=== PATIENT | male | born 1965 | race Caucasian/White ===

== ENCOUNTER 2017-02-04 15:13 | Outpatient (CLI) ==
[2017-02-04 15:33] LABS: BASOPHILS # (AUTO) 0.1 K/uL (0-0.2); BASOPHILS % (AUTO) 0.7 % (0.0-3.0); EOSINOPHILS # (AUTO) 0.3 K/ul (0.0-0.7); EOSINOPHILS % (AUTO) 2.5 % (0.0-7.0); HEMATOCRIT 47.8 % (42.0-52.0); HEMOGLOBIN 16.9 g/dl (14.0-18.0); IMMATURE GRANULOCYTE % (AUTO) 0.3 % (0.0-5.0); LYMPHOCYTES # (AUTO) 3.2 K/uL (0.60-3.4); LYMPHOCYTES % (AUTO) 32.2 (10.0-50.0); MEAN CORPUSCULAR HEMOGLOBIN 31.3 pg (27.0-31.0); MEAN CORPUSCULAR HGB CONC 35.4 (31.8-35.4); MEAN CORPUSCULAR VOLUME 88.5 fl (80.0-94.0); MONOCYTES # (AUTO) 1.1 K/uL (0.4-2.0); MONOCYTES % (AUTO) 10.6 (0-10); NEUTROPHILS # (AUTO) 5.4 K/ul (2.0-6.9); NEUTROPHILS % (AUTO) 53.7; PLATELET COUNT 326 10^3/uL (140-440)
[2017-02-04 16:20] LABS: ALBUMIN/GLOBULIN RATIO 0.95; ANION GAP 14.8; BILIRUBIN,TOTAL 0.72 mg/dL (0.00-1.20); BUN/CREATININE RATIO 10.63; CALCIUM 9.7 mg/dL (8.2-10.2); CREATININE 0.94 mg/dL (0.60-1.10); POTASSIUM 3.8 mmol/L (3.5-5.1); TOTAL PROTEIN 8.2 g/dL (6.4-8.2)
--- NOTE | 2017-02-04 16:58 | CT ---
EXAM: CT Abdomen with contrast. CT Pelvis with contrast. HISTORY: Left-sided abdominal pain. COMPARISON: None available. TECHNIQUE: Multiple axial images of the abdomen and pelvis were obtained following intravenous admi nistration of 75 mL of Omnipaque 350, low osmolar. Images were reformatted in the coronal plane. FINDINGS: The lung bases are clear. Degenerative changes are present in the spine. The liver, gallbladder, pancreas, spleen, and adrenal glands are unremarkable.. There is symmetric renal enhancement. Probable extrarenal pelvis on the left. No dilated ureters are seen. Bladder i s unremarkable. The bowel is normal in course and caliber without evidence for obstruction or inflammatory process. There may be a few diverticula in the colon. The appendix is normal. No free fluid, free air or l ymphadenopathy identified. IMPRESSION: 1. No acute inflammatory process in the abdomen or pelvis. 2. Minimal diverticulosis.
== END 2017-02-04 15:14 | disposition home or self-care (01) ==
LOC: RAD 15:13
PROVIDERS: ATTEND Family Medicine
DX: R10.9 Unspecified abdominal pain (principal)
CPT/HCPCS: 36415; 80053; 83690; 85025